=== PATIENT | male | born 1975 | race African-American/Black ===

== ENCOUNTER → 2017-10-25 | Day surgery (SDC) | payer OTHER ==
[~2017-10-25] MED LIST: ACETAMINOPHEN 1000 MG/100 ML IV ONE; ASPIRIN 81 MG CHEW TAB PO ONE; BUPIVACAINE 0.25% 30ML SDV INJ ONE; DESFLURANE 240 ML BTL INH ONE; DEXAMETHASONE SOD PHOS INJ 4 MG/ML VIAL ONE; FENTANYL CITRATE/PF 100MCG/2 ML INJ ONE; FLONASE; GLYCOPYRROLATE INJ 1MG/ 5 ML SYR ONE; METOCLOPRAMIDE HCL 10 MG/2ML VIAL ONE; MIDAZOLAM HCL 2 MG/2 ML VIAL ONE; MORPHINE SULFATE 2 MG/ML SYR ONE; NEOSTIGMINE 5 MG/5ML SYR ONE; ONDANSETRON HCL INJ 2 MG/ML VIAL ONE; PROPOFOL IV EMULSION 10 MG/ML 20 ML VIAL ONE; ROCURONIUM BROMIDE 10 MG/ML 5ML VIAL ONE
--- NOTE | 2017-10-25 11:01 | Diagnostic Imaging Report ---
PROCEDURE:CHEST SINGLE (PORTABLE) TECHNIQUE:Portable AP chest INDICATION:Shortness of breath; chest pain COMPARISON:None. FINDINGS: Lungs are clear and symmetrically inflated. No pleural effusions. Normal mediastinal contour, heart size and pulmonary vasculature for technique. Intact skeleton. CONCLUSION: No acute abnormality. Dictated by: Ryan Campbell M.D. on 10/25/2017 at 11:04 Electronically approved by: Ryan Campbell M.D. on 10/25/2017 at 11:04
--- NOTE | 2017-10-25 12:18 | Operative Report ---
DATE OF PROCEDURE: October 25, 2017 PREOPERATIVE DIAGNOSIS: Chronic adenotonsillitis. Adenotonsillar hypertrophy. POSTOPERATIVE DIAGNOSIS: Chronic adenotonsillitis. Adenotonsillar hypertrophy. PROCEDURE: Tonsillectomy and adenoidectomy. SIGNIFICANT FINDINGS: Tonsils are 3+/3+, scarred. Adenoids are mildly enlarged. ANESTHESIA: General endotracheal tube anesthesia. SPECIMENS REMOVED: Tonsils (adenoids were coblated). ESTIMATED BLOOD LOSS: Less than 1 mL. COMPLICATIONS: None. INDICATIONS: The patient is a 42-year-old male with a 1-1/2-year history of frequent throat infections. Symptoms manifest as sore throat, odynophagia, postnasal drip, globus sensation and throat clearing. He has had 6 episodes in the past 1-1/2 years treated maximally with multiple courses of antibiotics, which help temporarily. Strep tests have been positive on multiple occasions. On examination, his tonsils are 3+/3+, scarred bilaterally. He is scheduled for tonsillectomy and adenoidectomy for the treatment of chronic adenotonsillitis and adenotonsillar hypertrophy. Risks and complications of the procedures were thoroughly discussed with the patient, and they include infection; bleeding; scarring; failure to improve; need for additional operations; persistent throat infections; damage to teeth, gums, tongue and lips; chronic pain; voice changes; numbness of the tongue; inability to taste; leakage of fluid through the nose when drinking liquids; scarring of the pharynx resulting in permanent worse nasal obstruction; need for blood transfusions; damage to surrounding nerves, blood vessels and muscles. He fully understands and gives consent. PROCEDURE: Patient was taken to the operating room and placed supine on the operating table, where general anesthesia was achieved through orotracheal intubation. Eyes were taped. A shoulder roll was placed. Head and body were draped. Table was turned 90 degrees with the head toward the surgeon. Elder-Alcon mouth gag was inserted without difficulty and placed in suspension on a Carrera stand. There was no evidence of bifid uvulae, diastasis of muscular uvulae or notched hard palate. Red rubber catheters were then inserted into the nose and brought out through the mouth to retract the soft palate. Examination of the nasopharynx with the laryngeal mirror revealed the adenoids to be mildly hypertrophied. Tonsils were 3+/3+ bilaterally. The left tonsil was grasped with a tonsillar Allis clamp and was removed with the ArthroCare Coblator on a setting of 6 on cut mode, taking care to stay right on the capsule of the tonsil. The right tonsil was removed in the same way. Both tonsillar beds were moderately scarred from previous infection(s). Hemostasis was obtained with the Coblator on a setting of 3 and coag mode. Following this, the adenoids were then removed with the ArthroCare Coblator on a setting of 8 on cut mode, taking care to avoid trauma to the torus tubarius bilaterally. Hemostasis was obtained with the Coblator on a setting of 3 and coag mode. Injection with 3 mL of 1/4 percent plain Marcaine was injected into the free edges of the anterior and posterior tonsillar pillars. Thorough irrigation was then performed. Stomach contents was suctioned with an NG tube. The red rubber catheters and Elder-Alcon mouth gag were then removed without difficulty revealing no trauma to the teeth, gum, tongue and lips. Patient was awakened in the operating room, extubated and taken to the recovery room in good condition. Job#: [id number] ANAM ARRIAGA
[2017-10-25 13:47] LABS: CREATINE KINASE 236 IU/L (30-200)
--- NOTE | 2017-10-25 14:26 | Consultation ---
DATE OF CONSULTATION: October 25, 2017 CARDIOLOGY CONSULTATION REQUESTING PHYSICIAN: Dr. Lancaster. REASON FOR CONSULTATION: Chest pain. HISTORY OF PRESENTING ILLNESS: Mr. Veloz is a 42-year-old gentleman with no significant past medical history. He underwent tonsillectomy and adenoidectomy and tolerated the procedure well. Apparently after surgery while in recovery, patient developed chest pain. Patient states that he was a little short of breath and had a vague discomfort in his chest which lasted for about 30 minutes. He states it is pretty much resolved and he feels fine now. Denies any abdominal pain, vomiting or diarrhea. REVIEW OF SYMPTOMS: CONSTITUTIONAL: No fatigue or weakness. HEENT: No headache, blurring of vision, seizures or syncope. CARDIOVASCULAR: Had chest pain. Had some dyspnea and orthopnea, PND. RESPIRATORY: No cough, fever or expectoration. GI: No abdominal pain, vomiting, diarrhea. : No dysuria, frequency, incontinence. ALLERGIES: NO KNOWN DRUG ALLERGIES. MEDICATIONS: See list. PAST MEDICAL HISTORY: No significant past medical history. SOCIAL HISTORY: Does not smoke or drink. FAMILY HISTORY: Noncontributory. PHYSICAL EXAMINATION: GENERAL: Obese gentleman, alert, oriented, not in any obvious distress. VITALS: Heart rate is 88. Blood pressure is 106/68. HEENT: Atraumatic. NECK: No JVD, bruit, thyromegaly, lymphadenopathy. CARDIOVASCULAR: First and second heart sounds heard. No murmurs, rubs or gallops appreciated. CHEST: Clear to auscultation. ABDOMINAL: Soft, nontender. EXTREMITIES: No edema. LABORATORY DATA: EKG shows sinus rhythm at 85 beats per minute, normal axis, normal intervals. No acute ST-T changes. IMPRESSION: 1. Chest pain, atypical. 2. Status post tonsillectomy adenoidectomy. PLAN: 1. Patient had transient episode of chest pain, uncertain about the etiology. 2. His EKG is normal. 3. Will get an echocardiogram to assess LV function, valvular function. 4. A cardiac enzyme has been sent. Unlikely that patient's chest pain is cardiac related. 5. Patient can follow up as an outpatient following his discharge. I have discussed my impression and plan of management with patient, and he understands it. As always, appreciate and thank you very much for your referrals. Job#: [id number]
== END | disposition home or self-care (01) ==
LOC: OR 05:37
PROVIDERS: ATTEND Otolaryngology
DX: J35.03 Chronic tonsillitis and adenoiditis (principal); R07.89 Other chest pain; A42.89 Other forms of actinomycosis; I34.0 Nonrheumatic mitral (valve) insufficiency; I07.1 Rheumatic tricuspid insufficiency; I37.1 Nonrheumatic pulmonary valve insufficiency; E66.9 Obesity, unspecified; T78.40XA Allergy, unspecified, initial encounter; X58.XXXA Exposure to other specified factors, initial encounter; Z01.810 Encounter for preprocedural cardiovascular examination
CPT/HCPCS: 36415; 42821; 71045; 82550; 82553; 84484; 88304; 93005 ×2; 93306; J1100; J2250; J2270; J2405; J2765; J3490